=== PATIENT | male | born 1990 | race Caucasian/White ===

== ENCOUNTER 2016-08-14 03:00 | Emergency (ER) | payer MEDICAID ==
[~2016-08-14] VITALS: Ht 170.2 cm; Wt 52.0 kg
[~2016-08-14 03:00] MED LIST: PROM12.511 PO
[2016-08-14] MEDS ORDERED: ONDANSETRON HCL 4MG/2ML VIAL IV STA (03:55)
[2016-08-14] MEDS ORDERED: SODIUM CHLORIDE 0.9% 1,000 ML IV ONE ×2 (03:55→06:13)
[2016-08-14 04:20] LABS: HEMOGLOBIN. 14.6 g/dL (14.0-18.0); MEAN CORPUSCULAR HEMOGLOBIN 29.6 pg (28.0-32.0); MEAN CORPUSCULAR HGB CONC 33.1 g/dL (31.0-37.0); MEAN CORPUSCULAR VOLUME 89.4 fL (80.0-94.0); MEAN PLATELET VOLUME 7.5 fl (7.4-10.4); PLATELET 213 x1000/uL (130-400); RED BLOOD CELL COUNT 4.92 mill/uL (4.7-6.1); RED CELL DISTRIBUTION WIDTH 13.8 % (11.6-14.6)
[2016-08-14 04:24] LABS: DIFFERENTIAL COMMENT 1
[2016-08-14 04:29] LABS: PROTHROMBIN TIME 11.4 sec
[2016-08-14 04:30] LABS: INR 1.1
[2016-08-14 04:31] LABS: ALANINE AMINOTRANSFERASE 36 IU/L (13-61); ALBUMIN 4.6 g/dL (3.4-5.0); ANION GAP 13; CALCIUM 9.2 mg/dL (8.5-10.1); CARBON DIOXIDE 27 mEq/L (21-32); CHLORIDE 105 mEq/L (98-107); INDEX HEMOLYSI 1 (1-3); INDEX ICTERIC 1 (1-4); INDEX LIPEMIC 1 (1-3); LIPASE 112 IU/L (73-393); UREA NITROGEN BLOOD 15 mg/dL (7-21); eGFR > 60 mL/min (>60)
[2016-08-14 05:08] LABS: PLATELET ESTIMATE NORMAL
[2016-08-14] MEDS ORDERED: ONDANSETRON HCL 4MG/2ML VIAL IV ONE (05:15)
[2016-08-14 05:22] LABS: CLARITY URINE CLEAR (CLEAR); COLOR URINE YELLOW (YELLOW); GLUCOSE URINE NEGATIVE (NEGATIVE); KETONES URINE 2+ (NEGATIVE); LEUKOCYTE ESTERASE URINE TRACE (NEGATIVE); NITRITE URINE NEGATIVE (NEGATIVE); OCCULT BLOOD URINE NEGATIVE (NEGATIVE); PROTEIN URINE NEGATIVE (NEGATIVE); SPECIFIC GRAVITY URINE 1.029 (1.005-1.030); UROBILINOGEN URINE 0.2 E.U./dL (0.2-1.0)
[2016-08-14 05:52] LABS: RBC URINE 0-2 /hpf (0-2); SQUAMOUS EPITHELIAL CELL URINE NONE SEEN /lpf (RARE/1+); WBC URINE 0-2 /hpf (0-2)
[2016-08-14 05:53] LABS: BACTERIA URINE TRACE
[2016-08-14 08:09] VITALS: BP 99/67
== END 2016-08-14 08:13 | disposition home or self-care (01) ==
LOC: ER 03:00
DX: R11.2 Nausea with vomiting, unspecified (principal); T37.4X5A Adverse effect of anthelminthics, initial encounter; Z79.899 Other long term (current) drug therapy; Y93.89 Activity, other specified; Y99.9 Unspecified external cause status; Y92.89 Other specified places as the place of occurrence of the external cause
CPT/HCPCS: 36415; 80053; 81001; 83690; 85025; 85610; 96361; 96374; 96376; 99285; J2405; J7030

== ENCOUNTER 2016-08-24 01:59 | Emergency (ER) | payer MEDICAID ==
[~2016-08-24] VITALS: Ht 170.2 cm; Wt 52.2 kg
[2016-08-24 04:09] LABS: BASOPHILS % 0.5 % (0.0-2.0); EOSINOPHILS % 1.8 % (0.0-5.0); HEMOGLOBIN. 13.3 g/dL (14.0-18.0); MEAN CORPUSCULAR HEMOGLOBIN 30.3 pg (28.0-32.0); MEAN CORPUSCULAR VOLUME 89.3 fL (80.0-94.0); MONOCYTES % 6.2 % (2.0-8.0); NEUTROPHILS % 60.5 % (40.0-76.0); PLATELET 249 x1000/uL (130-400); RED BLOOD CELL COUNT 4.37 mill/uL (4.7-6.1); RED CELL DISTRIBUTION WIDTH 13.8 % (11.6-14.6); WHITE BLOOD COUNT 9.2 x1000/uL (4.5-11.0)
[2016-08-24 04:14] LABS: CHLORIDE 106 mEq/L (98-107); INDEX HEMOLYSI 1 (1-3); INDEX ICTERIC 1 (1-4); INDEX LIPEMIC 1 (1-3)
[2016-08-24 04:20] LABS: ANION GAP 13; CARBON DIOXIDE 26 mEq/L (21-32); UREA NITROGEN BLOOD 12 mg/dL (7-21); eGFR > 60 mL/min (>60)
[2016-08-24 04:22] LABS: TROPONIN I < 0.02 ng/mL (0.00-0.04)
[2016-08-24 05:16] VITALS: BP 103/65
== END 2016-08-24 05:52 | disposition home or self-care (01) ==
LOC: ER 03:53
DX: R07.89 Other chest pain (principal); Z87.81 Personal history of (healed) traumatic fracture
CPT/HCPCS: 36415; 71010; 80048; 84484; 85025; 85379; 93005; 99285; Z7610